=== PATIENT | male | born 1970 | race Caucasian/White ===

== ENCOUNTER 2018-09-23 11:05 | Inpatient (IN) | payer OTHER ==
[~2018-09-23] VITALS: Ht 177.8 cm; Wt 63.5 kg
--- NOTE | ~2018-09-23 | MORECARE ---
CASE MANAGEMENT DISCHARGE SUMMARY PATIENT: HUE MARTE RAY UNIT: [id number] ADM DATE: 09/25/18 AGE: 47 : 68 SEX: M ROOM/BED: D.2137 AUTHOR: CHELSI GARCIA PHYSICIAN: REFERRING PHYSICIAN: LAMAR FINK MD DATE OF SERVICE: 09/28/18 Discharge Plan Patient Name: HUE MARTE Facility: [facility]:[place] : 1970 Planned Disposition: Home Anticipated Discharge Date: 09/26/18 Discharge Date: 09/26/2018 Expected LOS: 1 Initial Reviewer: [email or web address] Initial Review Date: 09/28/2018 Generated: 09/28/18 8:21 am Patient Name: HUE MARTE Page [id number] at 0721 All edits/amendments must be made on the electronic document DICTATION DATE: 09/28/18720 ORANGE PICKING SUPERVISOR: DIVYA 09/28/18720 RPT#: [id number] DC DATE:09/26/18 STATUS: DIS IN [facility] [address] [id number] END OF REPORT
[2018-09-23] MEDS ORDERED: NEURONTIN 300300 MG PO (12:58)
[2018-09-23] MEDS ORDERED: TORADOL10 MG PO (12:58)
[2018-09-23 18:34] VITALS: BP 152/87; BMI 22.2
[2018-09-23 21:08] VITALS: BP 158/86
[2018-09-24] VITALS: BP 152/85
[2018-09-24 05:49] VITALS: BP 137/88
[2018-09-24 08:01] VITALS: BP 169/97
[2018-09-24 11:17] VITALS: BP 160/96
[2018-09-24 11:19] LABS: HEMATOCRIT 38.5 % (42.0-54.0); MCH 35.5 pg (26.0-34.0); MCHC 36.4 g/dL (31.0-37.0); MCV 97.7 fL (80.0-100.0); PLATELET COUNT 213 10x3/uL (130-400); RBC 3.94 10x6/uL (4.20-6.10); RDW 11.9 % (11.5-14.5); WBC 13.4 10x3/uL (4.8-10.8)
[2018-09-24 11:37] LABS: ALBUMIN 3.2 g/dL (3.4-5.0); ALKALINE PHOSPHATASE 87 U/L (46-116); ALT (SGPT) 29 U/L (10-68); BILIRUBIN - TOTAL 0.47 mg/dL (0.2-1.3); CALC OSMOLALITY 265 mosm/kg (275-300); CALCIUM 8.7 mg/dL (8.5-10.1); CARBON DIOXIDE 27.7 mmol/L (21.0-32.0); CHLORIDE - SERUM 96 mmol/L (98-107); CREATININE - SERUM 0.9 mg/dL (0.6-1.3); GLUCOSE 115 mg/dL (74-106); POTASSIUM - SERUM 4.2 mmol/L (3.5-5.1); PROTEIN - SERUM 7.2 g/dL (6.4-8.2); SODIUM 133 mmol/L (136-145); UREA NITROGEN 10 mg/dL (7-18); eGFR NON AFRICAN AMERICAN > 90 mL/min (90-120)
[2018-09-24 12:11] LABS: EOSINOPHILS 1 % (0-7); LYMPHOCYTES 14 % (15-50); MONOCYTES 6 % (2-11); NEUTROPHILS 77 % (40-80); PLATELET ESTIMATE NORMAL; ROULEAUX 1+
[2018-09-24 13:28] LABS: UDS - AMPHET POSITIVE QUAL (NEGATIVE); UDS - BARB NEGATIVE QUAL (NEGATIVE); UDS - BENZO NEGATIVE QUAL (NEGATIVE); UDS - COCAINE NEGATIVE QUAL (NEGATIVE); UDS - OPIATE POSITIVE QUAL (NEGATIVE); UDS - PCP NEGATIVE QUAL (NEGATIVE); UDS - THC POSITIVE QUAL (NEGATIVE)
[2018-09-24 13:43] LABS: APPEARANCE HAZY (CLEAR); BILIRUBIN NEGATIVE (NEGATIVE); COLOR YELLOW (YELLOW); GLUCOSE NEGATIVE (NEGATIVE); KETONE NEGATIVE (NEGATIVE); NITRITE POSITIVE (NEGATIVE); PROTEIN TRACE mg/dL (NEGATIVE); SPECIFIC GRAVITY 1.005 (1.005-1.020); UROBILINOGEN NORMAL (NORMAL)
[2018-09-24 13:48] LABS: AMORPHOUS SEDIMENT <1+ /lpf (NONE SEEN); BACTERIA MANY /hpf (NONE SEEN); EPITHELIAL CELLS 0-5 /hpf (0-5); MUCUS <1+ /lpf (NONE SEEN)
[2018-09-24 15:23] VITALS: BP 155/93
[2018-09-24 20:30] VITALS: BP 156/91
[2018-09-25 00:30] VITALS: BP 128/82
[2018-09-25 04:30] VITALS: BP 126/66
[2018-09-25 05:48] LABS: BASOPHILS 0.1 % (0-2); EOSINOPHILS 0.2 % (0-7); HEMATOCRIT 40.7 % (42.0-54.0); HEMOGLOBIN 14.2 g/dL (13.5-17.5); IMMATURE GRANULOCYTES 0.1 % (0-5); LYMPHOCYTES 18.9 % (15-50); MCH 34.4 pg (26.0-34.0); MCHC 34.9 g/dL (31.0-37.0); MCV 98.5 fL (80.0-100.0); MEAN PLATELET VOLUME 9.4 fL (7.4-10.4); MONOCYTES 15.6 % (2-11); NEUTROPHILS 65.1 % (40-80); RBC 4.13 10x6/uL (4.20-6.10); WBC 10.4 10x3/uL (4.8-10.8)
[2018-09-25 05:59] LABS: PLATELET COUNT 270 10x3/uL (130-400)
[2018-09-25 06:03] LABS: CALC OSMOLALITY 266 mosm/kg (275-300); CALCIUM 9.3 mg/dL (8.5-10.1); CARBON DIOXIDE 28.1 mmol/L (21.0-32.0); CHLORIDE - SERUM 95 mmol/L (98-107); CREATININE - SERUM 0.8 mg/dL (0.6-1.3); GLUCOSE 117 mg/dL (74-106); SODIUM 132 mmol/L (136-145); eGFR NON AFRICAN AMERICAN > 90 mL/min (90-120)
[2018-09-25 06:07] LABS: UREA NITROGEN 16 mg/dL (7-18)
[2018-09-25 08:16] VITALS: BP 138/92
[2018-09-25 11:21] VITALS: BP 136/84
[2018-09-25 15:55] VITALS: BP 134/84
[2018-09-25 20:30] VITALS: BP 129/86
[2018-09-26 00:30] VITALS: BP 130/81
[2018-09-26 04:30] VITALS: BP 147/103
[2018-09-26 05:50] LABS: BASOPHILS 0.1 % (0-2); EOSINOPHILS 0.4 % (0-7); HEMATOCRIT 42.2 % (42.0-54.0); HEMOGLOBIN 14.8 g/dL (13.5-17.5); IMMATURE GRANULOCYTES 0.2 % (0-5); LYMPHOCYTES 19.5 % (15-50); MCH 34.7 pg (26.0-34.0); MCHC 35.1 g/dL (31.0-37.0); MCV 98.8 fL (80.0-100.0); MEAN PLATELET VOLUME 9.5 fL (7.4-10.4); MONOCYTES 14.2 % (2-11); NEUTROPHILS 65.6 % (40-80); PLATELET COUNT 302 10x3/uL (130-400); RBC 4.27 10x6/uL (4.20-6.10); RDW 11.9 % (11.5-14.5); WBC 10.9 10x3/uL (4.8-10.8)
[2018-09-26 06:10] LABS: CALC OSMOLALITY 273 mosm/kg (275-300); CALCIUM 9.6 mg/dL (8.5-10.1); CHLORIDE - SERUM 97 mmol/L (98-107); GLUCOSE 107 mg/dL (74-106); POTASSIUM - SERUM 4.2 mmol/L (3.5-5.1); SODIUM 136 mmol/L (136-145); UREA NITROGEN 17 mg/dL (7-18); eGFR NON AFRICAN AMERICAN 85 mL/min (90-120)
[2018-09-26 07:47] VITALS: BP 121/80
[2018-09-26 10:58] VITALS: Ht 177.8 cm; Wt 63.5 kg
[2018-09-26 11:21] VITALS: BP 161/97
[2018-09-26] MEDS ORDERED: LEVAQUIN750 MG PO ×2 (14:32→14:38)
[2018-09-26] MEDS ORDERED: NORCO-7.5 PO (14:32)
[2018-09-26] MEDS ORDERED: NORCO-10 PO (14:39)
[2018-09-26 15:09] VITALS: BP 145/92
== END 2018-09-26 15:50 | disposition home or self-care (01) | DRG 563 ==
LOC: D.ER 11:05 → D.M2 15:42 → OBSVTIME 16:07 → D.M2 09-25 16:06
PROVIDERS: Internal Medicine Nephrology
DX: S43.401A Unspecified sprain of right shoulder joint, initial encounter (principal); N39.0 Urinary tract infection, site not specified; F17.213 Nicotine dependence, cigarettes, with withdrawal; X58.XXXA Exposure to other specified factors, initial encounter; F15.90 Other stimulant use, unspecified, uncomplicated; M19.012 Primary osteoarthritis, left shoulder; M19.011 Primary osteoarthritis, right shoulder; M54.12 Radiculopathy, cervical region